=== PATIENT | male | born 1995 | race Caucasian/White ===

== ENCOUNTER 2016-09-02 23:37 | Observation (INO) | payer BC, OTHER ==
[2016-09-02] MEDS ORDERED: Albuterol 0.083% 2.5 MG/3 ML Neb Soln NEB ONE (23:58)
[2016-09-02] MEDS ORDERED: Albuterol 0.083% 2.5 MG/3 ML Neb Soln ONE (23:59)
[2016-09-02] MEDS ORDERED: methylPREDNISolone Sodium Succinate 125 MG/2 ML SDV IM ONE (23:59)
--- NOTE | 2016-09-03 00:04 | EDM.PDOC ---
ED HISTORY OF PRESENT ILLNESS - General Chief Complaint: Respiratory Problem Stated Complaint: shortness of breath Time Seen by Provider: 09/02/16 23:50 Source of Information: Reports: Patient History Limitations: Reports: No limitations - History of Present Illness INITIAL COMMENTS - FREE TEXT/NARRATIVE: The patient reports shortness of breath and wheezing that have been persistent since awakening this morning. He was seen today by TAYA Porras and states he was diagnosed with "allergies" and was given "a steroid injection", no nebulizer treatment, and he was given a prescription for Ciprofloxacin 500 mg tabs BID for 10 days. He reports the wheezing and shortness of breath has increased throughout the day and tonight. He denies cough, fever, chills, and bodyaches. He denies other symptoms or complaints. - Related Data Allergies/ADRs: Allergies Allergy/AdvReac Type Severity Reaction Status Date / Time amoxicillin Allergy Cannot Verified 09/02/16 23:38 Remember Penicillins Allergy Cannot Verified 09/02/16 23:38 Remember Sulfa (Sulfonamide Allergy Rash Verified 09/02/16 23:38 Antibiotics) Home Meds: Home Meds Loratadine [Claritin] 10 mg PO ACBRK 06/30/14 [History] Albuterol Sulfate [Albuterol Sulfate HFA] 2 puff INH Q4HR PRN 12/19/14 [History] Albuterol/Ipratropium [DuoNeb 3.0-0.5 MG/3 ML] 3 ml NEB Q4H PRN 09/02/16 [ History] Ciprofloxacin [Ciprofloxacin HCl] 500 mg PO BID 09/02/16 [History] Prednisone [IJD: predniSONE] 20 mg PO WITHBREAKFAST 09/02/16 [History] methylPREDNISolone [Medrol] 4 mg PO ASDIRECTED #1 tab.ds.pk 09/03/16 [Rx] Past Medical History - Past Health History Medical/Surgical History: Denies Medical/Surgical History Respiratory History: Reports: Asthma - Past Surgical History GI Surgical History: Reports: Appendectomy Social & Family History - Tobacco Use Smoking Status *Q: Never Smoker Second Hand Smoke Exposure: No - Alcohol Use Days Per Week of Alcohol Use: 0 - Recreational Drug Use Recreational Drug Use: No ED ROS GENERAL - Review of Systems Review Of Systems: ROS reveals no pertinent complaints other than HPI. ED EXAM, GENERAL - Physical Exam Exam: See Below Exam Limited By: No limitations General Appearance: alert, WD/WN, no apparent distress, moderate distress ( Respiratory with wheezing and tachypnea.) Eye Exam: left eye: EOMI, normal inspection, PERRL Ears: normal external exam, normal canal, hearing grossly normal, normal TMs Ear Exam: bilateral ear: auricle normal, canal normal, TM normal Nose: normal inspection, normal mucosa, no blood Throat/Mouth: Normal inspection, Normal lips, Normal teeth, Normal gums, Normal oropharynx, Normal voice, No airway compromise Head: atraumatic, normocephalic Neck: normal inspection, supple, non-tender, full range of motion. No: lymphadenopathy (L), lymphadenopathy (R), tender lateral, tender midline Respiratory/Chest: no accessory muscle use, chest non-tender, respiratory distress (Tachypnea and shortness of breath.), decreased breath sounds, wheezing (Expiratory throughout.). No: crackles, rales, rhonchi, stridor, pleural rub, retractions, splinting Cardiovascular: normal peripheral pulses, no murmur Peripheral Pulses: 2+: radial (L), radial (R) GI/Abdominal: normal bowel sounds, soft, non tender, no organomegaly, no distention Back Exam: normal inspection, full range of motion Extremities: normal inspection, normal range of motion, non-tender, no pedal edema, normal capillary refill Neurological: alert, oriented, CN II-XII intact, normal cognition, normal gait, normal reflexes, no motor/sensory deficits Psychiatric: normal affect, normal mood Skin Exam: Warm, Dry, Intact, Normal color, No rash Course - Vital Signs Last Recorded V/S: Last Vital Signs Temp 36.6 C 09/02/16 23:45 Pulse 131 H 09/02/16 23:45 Resp 24 H 09/02/16 23:45 BP 136/97 H 09/02/16 23:45 Pulse Ox 98 09/03/16 01:40 - Orders/Labs/Meds Orders: Active Orders 24 hr Category Date Time Status Peripheral IV Care [RC] . DIRECTED Care 09/03/16 00:36 Active RT Aerosol Therapy [RC] ASDIRECTED Care 09/02/16 23:58 Active RT Aerosol Therapy [RC] ASDIRECTED Care 09/02/16 23:59 Active RT Aerosol Therapy [RC] ASDIRECTED Care 09/03/16 00:37 Active RT Aerosol Therapy [RC] ASDIRECTED Care 09/03/16 01:59 Active RT Aerosol Therapy [RC] ASDIRECTED Care 09/03/16 02:00 Active EPINEPHrine [Adrenalin 1:1000] Med 09/03/16 02:25 Once 0.5 mg IM ONETIME ONE Sodium Chloride 0.9% [Saline Flush] Med 09/03/16 00:36 Active 10 ml FLUSH ASDIRECTED PRN Peripheral IV Insertion Adult [OM.PC] Routine Oth 09/03/16 00:36 Ordered Medication Orders Sodium Chloride (Saline Flush) 10 ml FLUSH ASDIRECTED PRN PRN Reason: Keep Vein Open Meds: Medications Generic Name Dose Route Start Last Admin Trade Name Freq PRN Reason Stop Dose Admin Sodium Chloride 10 ml 09/03/16 00:36 Saline Flush FLUSH ASDIRECTED PRN Keep Vein Open Discontinued Medications Generic Name Dose Route Start Last Admin Trade Name Freq PRN Reason Stop Dose Admin Albuterol 2.5 mg 09/02/16 23:58 09/03/16 00:35 Proventil Neb Soln NEB 09/02/16 23:59 2.5 mg ONETIME ONE Administration Albuterol 2.5 mg 09/03/16 00:15 09/03/16 00:01 Proventil Neb Soln NEB 09/03/16 00:16 2.5 mg ONETIME ONE Administration Albuterol Confirm 09/02/16 23:59 09/03/16 00:59 Proventil Neb Soln Administered 09/03/16 00:00 Not Given Dose 2.5 mg .ROUTE .STK-MED ONE Albuterol 2.5 mg 09/03/16 01:58 09/03/16 01:26 Proventil Neb Soln NEB 09/03/16 01:59 2.5 mg ONETIME ONE Administration Albuterol/Ipratropium Confirm 09/03/16 00:15 09/03/16 01:55 Duoneb 3.0-0.5 Mg/3 Ml Administered 09/03/16 00:16 3 ml Dose Administration 3 ml .ROUTE .STK-MED ONE Albuterol/Ipratropium 3 ml 09/03/16 00:37 09/03/16 01:01 Duoneb 3.0-0.5 Mg/3 Ml NEB 09/03/16 00:38 3 ml ONETIME ONE Administration Albuterol/Ipratropium Confirm 09/03/16 01:55 09/03/16 02:00 Duoneb 3.0-0.5 Mg/3 Ml Administered 09/03/16 01:56 Not Given Dose 3 ml .ROUTE .STK-MED ONE Albuterol/Ipratropium 3 ml 09/03/16 02:00 09/03/16 02:02 Duoneb 3.0-0.5 Mg/3 Ml NEB 09/03/16 02:01 Not Given ONETIME ONE Epinephrine HCl 0.5 mg 09/03/16 01:02 09/03/16 01:06 Adrenalin 1:1000 IM 09/03/16 01:03 0.5 mg ONETIME ONE Administration Epinephrine HCl 0.5 mg 09/03/16 01:41 09/03/16 01:43 Adrenalin 1:1000 IM 09/03/16 01:42 0.5 mg ONETIME ONE Administration Sodium Chloride 1,000 mls @ 1,000 mls/hr 09/03/16 00:35 09/03/16 00:52 Normal Saline IV 09/03/16 01:34 1,000 mls/hr .BOLUS ONE Administration Magnesium Sulfate 2 gm/ Premix 50 mls @ 50 mls/hr 09/03/16 00:37 09/03/16 00: 52 IV 09/03/16 01:36 50 mls/hr ONETIME ONE Administration Methylprednisolone Sodium Succinate 125 mg 09/02/16 23:59 09/03/16 00:13 Solu-Medrol IM 09/03/16 00:00 125 mg ONETIME ONE Administration Methylprednisolone Sodium Succinate 125 mg 09/03/16 00:41 09/03/16 00:47 Solu-Medrol IVPUSH 09/03/16 00:42 125 mg ONETIME ONE Administration Departure - Departure Time of Disposition: 00:35 Disposition: Home, Self-Care 01 Clinical Impression: Asthma exacerbation, Acute bronchospasm Prescriptions: methylPREDNISolone [Medrol] 4 mg PO ASDIRECTED #1 tab.ds.pk Instructions: Asthma, Acute Bronchospasm Forms: ED Department Discharge Additional Instructions: 1. Given albuterol nebulizers x 3 with significant improvement in breath sounds following each and near resolution of wheezing after last. 2. Solumedrol 125 mg IM in ER. 3. Prescription for Medrol dose pack, take as prescribed, 0 refills. 4. Instructed to resume albuterol nebulizers at home every 2 hours as needed for the next 2-3 days, then as prescribed. 5. Followup with PCP in 3-5 days to reassess asthma treatment regimen. 6. Return to ER with severe/refractory shortness of breath, wheezing, chest pain , fever > 101 F not responsive to acetaminophen or ibuprofen, or other emergent concerns. - My Orders Last 24 Hours: My Active Orders 09/02/16 23:58 RT Aerosol Therapy [RC] ASDIRECTED 09/02/16 23:59 RT Aerosol Therapy [RC] ASDIRECTED 09/03/16 00:36 Peripheral IV Care [RC] . DIRECTED Sodium Chloride 0.9% [Saline Flush] 10 ml FLUSH ASDIRECTED PRN Peripheral IV Insertion Adult [OM.PC] Routine 09/03/16 00:37 RT Aerosol Therapy [RC] ASDIRECTED 09/03/16 01:59 RT Aerosol Therapy [RC] ASDIRECTED 09/03/16 02:00 RT Aerosol Therapy [RC] ASDIRECTED 09/03/16 02:25 EPINEPHrine [Adrenalin 1:1000] 0.5 mg IM ONETIME ONE - Assessment/Plan Last 24 Hours: My Active Orders 09/02/16 23:58 RT Aerosol Therapy [RC] ASDIRECTED 09/02/16 23:59 RT Aerosol Therapy [RC] ASDIRECTED 09/03/16 00:36 Peripheral IV Care [RC] . DIRECTED Sodium Chloride 0.9% [Saline Flush] 10 ml FLUSH ASDIRECTED PRN Peripheral IV Insertion Adult [OM.PC] Routine 09/03/16 00:37 RT Aerosol Therapy [RC] ASDIRECTED 09/03/16 01:59 RT Aerosol Therapy [RC] ASDIRECTED 09/03/16 02:00 RT Aerosol Therapy [RC] ASDIRECTED 09/03/16 02:25 EPINEPHrine [Adrenalin 1:1000] 0.5 mg IM ONETIME ONE Assessment:: Asthma Exacerbation with Acute Bronchospasm. Plan: 1. Given albuterol nebulizer and Duoneb nebulizers in alternating fashion, 3 of each, with mild improvement in breath sounds following each. 2. Solumedrol 125 mg IM x 1 in ER shortly after arrival, then 125 mg IV x 1 in ER. 3. Magnesium Sulfate 2 grams IV over 1 hour. 4. Epinephrine 0.5 mg IM x 3 in ER. 5. NS bolus of 1 L over 1 hour. 6. Admit for observation with continuous pulse oximetry and telemetry. 7. Alternating Albuterol and Duoneb nebulizers every 1 hour overnight. 8. Solumedrol 125 mg IV at 06:00. 9. CBC, CMP at 07:00. 10. CXR 2 view at 08:00. 11. Reassess in AM. 12. Nursing to notify of desaturation, worsened wheezing or SOB, mental status changes, or other emergent concerns.
[2016-09-03] MEDS ORDERED: Albuterol 0.083% 2.5 MG/3 ML Neb Soln NEB ONE ×3 (00:15→03:24)
[2016-09-03] MEDS: Albuterol/Ipratropium 3.0-0.5 MG/3 ML Neb Soln ONE ×2 (00:18→01:55)
[2016-09-03] MEDS ORDERED: Sodium Chloride 0.9% 1,000 ML IV ONE ×2 (00:35→10:49)
[2016-09-03] MEDS ORDERED: Magnesium Sulfate/Water 2 GM in Premix Bag 1 BAG IV ONE (00:37)
[2016-09-03] MEDS ORDERED: Albuterol/Ipratropium 3.0-0.5 MG/3 ML Neb Soln NEB ONE ×2 (00:37→02:00)
[2016-09-03] MEDS ORDERED: methylPREDNISolone Sodium Succinate 125 MG/2 ML SDV IVPUSH ONE ×2 (00:41→06:00)
[2016-09-03] MEDS ORDERED: EPINEPHrine 1:1000 1 MG/ML SDV IM ONE ×3 (01:02→02:25)
[2016-09-03] MEDS ORDERED: Albuterol/Ipratropium 3.0-0.5 MG/3 ML Neb Soln ONE (01:55)
[2016-09-03] MEDS: Sodium Chloride 0.9% 10 ML Syringe FLUSH SCH ×3 (05:43→17:04)
[2016-09-03 07:41] LABS: CHLORIDE,CL 103 mmol/L (98-107); SODIUM,NA 140 mmol/L (136-145)
[2016-09-03] MEDS: Sodium Chloride 0.9% 10 ML Syringe FLUSH PRN ×4 (08:12→20:12)
[2016-09-03] MEDS ORDERED: Potassium Chloride 10 MEQ in Premix Bag 1 BAG IV ONE ×5 (10:47→10:48)
[2016-09-03] MEDS ORDERED: Calcium Gluconate 10% 1 GM/10 ML SDV IVPUSH ONE (10:48)
[2016-09-03] MEDS: Potassium Chloride 10 MEQ in Premix Bag 1 BAG IV SCH ×4 (11:02→14:22)
[2016-09-03] MEDS ORDERED: Albuterol 0.083% 2.5 MG/3 ML Neb Soln NEB PRN (12:50)
[2016-09-03] MEDS ORDERED: NS + KCl 20mEq/L 1,000 ML IV SCH (13:00)
--- NOTE | 2016-09-03 13:01 | PCM.PN ---
- General Info Date of Service: 09/03/16 Admission Dx/Problem (Free Text): Severe asthma exacerbation Subjective Update: The patient has had significant improvement with significantly improved shortness of breath and near total resolution of wheezing. He denies chest pain , cough, fever, chills, and bodyaches. He denies other symptoms or complaints. - Review of Systems General: Reports: Fatigue (Improved from admission.) HEENT: Reports: no symptoms Pulmonary: Reports: shortness of breath (Improved significantly). Denies: pleuritic chest pain, cough, sputum, hemoptysis, wheezing (Resolved) Cardiovascular: Denies: Chest Pain, Palpitations, Dyspnea on Exertion, Orthopnea , Edema Gastrointestinal: Reports: No symptoms Genitourinary: Reports: no symptoms Musculoskeletal: Reports: no symptoms Skin: Reports: no symptoms Neurological: Reports: No Symptoms Psychiatric: Reports: no symptoms - Patient Data Vitals - most recent: Last Vital Signs Temp 36.7 C 09/03/16 08:07 Pulse 121 H 09/03/16 08:07 Resp 20 09/03/16 08:07 BP 116/64 09/03/16 08:07 Pulse Ox 96 09/03/16 08:07 Weight - most recent: 94.347 kg I&O - last 24 hours: Intake & Output 09/02/16 09/03/16 09/03/16 22:59 06:59 14:59 Intake Total 240 Balance 240 Lab Results last 24 hrs: Laboratory Results - last 24 hr 09/03/16 09/03/16 Range/Units 06:25 06:25 WBC 11.9 H (4.0-10.2) K/uL RBC 5.09 (4.33-5.41) M/uL Hgb 15.1 (13.1-16.8) g/dL Hct 44.7 (39.0-49.0) % MCV 87.8 (84.0-98.0) fL MCH 29.7 (28.2-33.3) pg MCHC 33.8 (31.7-36.0) g/dL RDW 13.2 (11.2-14.1) % Plt Count 296 (150-350) K/uL Neut % (Auto) 96.1 H (45.0-80.0) % Lymph % (Auto) 2.9 L (10.0-50.0) % [place] % (Auto) 0.8 L (2.0-14.0) % Eos % (Auto) 0.1 (0.0-5.0) % Baso % (Auto) 0.1 (0.0-2.0) % Neut # (Auto) 11.43 H (1.40-7.00) K/uL Lymph # (Auto) 0.34 L (0.50-3.50) K/uL [place] # (Auto) 0.10 (0.00-1.00) K/uL Eos # (Auto) 0.01 (0.00-0.50) K/uL Baso # (Auto) 0.01 (0.00-0.20) K/uL Sodium 140 (136-145) mmol/L Potassium 3.0 L (3.5-5.1) mmol/L Chloride 103 (98-107) mmol/L Carbon Dioxide 16.9 L (21.0-32.0) mmol/L BUN 11 (7-18) mg/dL Creatinine 0.87 (0.51-1.17) mg/dL Est Cr Clr Drug Dosing 123.16 mL/min Estimated GFR (MDRD) > 60 mL/min Glucose 254 H* (74-106) mg/dL Calcium 8.0 L (8.5-10.1) mg/dL Total Bilirubin 0.9 (0.2-1.0) mg/dL AST 14 L (15-37) U/L ALT 25 (12-78) U/L Alkaline Phosphatase 67 (46-116) IU/L Total Protein 7.9 (6.4-8.2) g/dL Albumin 4.1 (3.4-5.0) g/dL Med Orders - Current: Current Medications Albuterol (Proventil Neb Soln) 2.5 mg NEB Q2H PRN PRN Reason: Wheezing Albuterol/Ipratropium (Duoneb 3.0-0.5 Mg/3 Ml) 3 ml NEB Q4HRRT [facility] Potassium Chloride 10 meq/ (Premix) 50 mls @ 50 mls/hr IV Q1H ABELARDO Stop: 09/03/16 14:59 Last Admin: 09/03/16 12:13 Dose: 50 mls/hr Potassium Chloride/Sodium Chloride (Normal Saline With 20 Meq Kcl) 1,000 mls @ 100 mls/hr IV ASDIRECTED ABELARDO Methylprednisolone Sodium Succinate (Solu-Medrol) 125 mg IVPUSH Q8H ABELARDO Sodium Chloride (Saline Flush) 10 ml FLUSH ASDIRECTED PRN PRN Reason: Keep Vein Open Last Admin: 09/03/16 11:09 Dose: 10 ml Sodium Chloride (Saline Flush) 10 ml FLUSH BID ABELARDO Last Admin: 09/03/16 08:12 Dose: 10 ml Discontinued Medications Albuterol (Proventil Neb Soln) 2.5 mg NEB ONETIME ONE Stop: 09/02/16 23:59 Last Admin: 09/03/16 00:35 Dose: 2.5 mg Albuterol (Proventil Neb Soln) 2.5 mg NEB ONETIME ONE Stop: 09/03/16 00:16 Last Admin: 09/03/16 00:01 Dose: 2.5 mg Albuterol (Proventil Neb Soln) Confirm Administered Dose 2.5 mg .ROUTE .STK-MED ONE Stop: 09/03/16 00:00 Last Admin: 09/03/16 00:59 Dose: Not Given Albuterol (Proventil Neb Soln) 2.5 mg NEB ONETIME ONE Stop: 09/03/16 01:59 Last Admin: 09/03/16 01:26 Dose: 2.5 mg Albuterol (Proventil Neb Soln) 15 mg NEB ONETIME ONE Stop: 09/03/16 03:25 Last Admin: 09/03/16 03:57 Dose: 15 mg Albuterol/Ipratropium (Duoneb 3.0-0.5 Mg/3 Ml) Confirm Administered Dose 3 ml .ROUTE .STK-MED ONE Stop: 09/03/16 00:16 Last Admin: 09/03/16 01:55 Dose: 3 ml Albuterol/Ipratropium (Duoneb 3.0-0.5 Mg/3 Ml) 3 ml NEB ONETIME ONE Stop: 09/03/16 00:38 Last Admin: 09/03/16 01:01 Dose: 3 ml Albuterol/Ipratropium (Duoneb 3.0-0.5 Mg/3 Ml) Confirm Administered Dose 3 ml .ROUTE .STK-MED ONE Stop: 09/03/16 01:56 Last Admin: 09/03/16 02:00 Dose: Not Given Albuterol/Ipratropium (Duoneb 3.0-0.5 Mg/3 Ml) 3 ml NEB ONETIME ONE Stop: 09/03/16 02:01 Last Admin: 09/03/16 02:02 Dose: Not Given Calcium Gluconate (Calcium Gluconate) 1 gm IVPUSH ONETIME ONE Stop: 09/03/16 10:49 Last Admin: 09/03/16 11:09 Dose: 1 gm Epinephrine HCl (Adrenalin 1:1000) 0.5 mg IM ONETIME ONE Stop: 09/03/16 01:03 Last Admin: 09/03/16 01:06 Dose: 0.5 mg Epinephrine HCl (Adrenalin 1:1000) 0.5 mg IM ONETIME ONE Stop: 09/03/16 01:42 Last Admin: 09/03/16 01:43 Dose: 0.5 mg Epinephrine HCl (Adrenalin 1:1000) 0.5 mg IM ONETIME ONE Stop: 09/03/16 02:26 Last Admin: 09/03/16 02:32 Dose: 0.5 mg Sodium Chloride (Normal Saline) 1,000 mls @ 1,000 mls/hr IV .BOLUS ONE Stop: 09/03/16 01:34 Last Admin: 09/03/16 00:52 Dose: 1,000 mls/hr Magnesium Sulfate 2 gm/ Premix 50 mls @ 50 mls/hr IV ONETIME ONE Stop: 09/03/16 01:36 Last Admin: 09/03/16 00:52 Dose: 50 mls/hr Sodium Chloride (Normal Saline) 1,000 mls @ 1,000 mls/hr IV .BOLUS ONE Stop: 09/03/16 11:48 Last Admin: 09/03/16 11:03 Dose: 1,000 mls/hr Methylprednisolone Sodium Succinate (Solu-Medrol) 125 mg IM ONETIME ONE Stop: 09/03/16 00:00 Last Admin: 09/03/16 00:13 Dose: 125 mg Methylprednisolone Sodium Succinate (Solu-Medrol) 125 mg IVPUSH ONETIME ONE Stop: 09/03/16 00:42 Last Admin: 09/03/16 00:47 Dose: 125 mg Methylprednisolone Sodium Succinate (Solu-Medrol) 125 mg IVPUSH ONETIME ONE Stop: 09/03/16 06:01 Last Admin: 09/03/16 05:43 Dose: 125 mg - Exam Quality Assessment: supplemental oxygen (4 L per nasal cannula. ) General: alert, oriented HEENT: Pupils equal, Pupils reactive, EOMI, Mucous membr. moist/pink Lungs: Clear to auscultation, Normal respiratory effort Cardiovascular: Regular Rate, Regular Rhythm Abdomen: bowel sounds present, soft, no tenderness, no distension Extremities: no edema, normal pulses, no tenderness/swelling, no clubbing, no cyanosis Skin: warm, dry, intact Wound/Incisions: healing well Neurological: no new focal deficit Psy/Mental Status: alert, normal affect, normal mood - Problem List & Annotations (1) Asthma exacerbation SNOMED Code(s): 062078267 Code(s): J45.901 - UNSPECIFIED ASTHMA WITH (ACUTE) EXACERBATION Status: Acute Priority: High Current Visit: Yes Annotation/Comment:: Severe asthma exacerbation and admitted from ER last night. Treated aggressively with multiple Duoneb and Albuterol nebulizers, IM/IV Solumedrol, Epinephrine IM x 2, and IV Magnesium Sulfate. Has had significant improvement and has mild shortness of breath currently. Still on 4 L NC, will wean as able to keep O2 > 92%. Will get ABG as serum bicarbonate low. (2) Dehydration, moderate SNOMED Code(s): 5294503733912 Code(s): E86.0 - DEHYDRATION Status: Acute Priority: High Current Visit : Yes Annotation/Comment:: Likely secondary to insensible losses with asthma exacerbation. Tachycardia. Will given NS bolus and IV maintenance fluids today. (3) Hypokalemia SNOMED Code(s): 84881344 Code(s): E87.6 - HYPOKALEMIA Status: Acute Priority: High Current Visit : Yes Annotation/Comment:: Replete with IV potassium. (4) Hypocalcemia SNOMED Code(s): 7982673 Code(s): E83.51 - HYPOCALCEMIA Status: Acute Priority: Medium Current Visit: Yes Annotation/Comment:: Will replete with IV calcium gluconate. - Problem List Review Problem List Initiated/Reviewed/Updated: Yes - My Orders Last 24 Hours: My Active Orders 09/03/16 03:18 Patient Status [ADT] Routine Cardiac Monitoring [RC] Q2HR 09/03/16 03:20 Code Status [Resuscitation Status] Routine 09/03/16 03:21 Overnight Pulse Oximetry [RC] Click To Edit Pulse Oximetry Continuous Monitoring [OM.PC] Routine 09/03/16 03:25 RT Aerosol Therapy [RC] .PRN 09/03/16 03:27 Vital Signs [RC] Q2H 09/03/16 06:00 Sodium Chloride 0.9% [Saline Flush] 10 ml FLUSH BID 09/03/16 08:00 Chest 2V [CR] Routine 09/03/16 11:00 Potassium Chloride [KCl 10 MEQ in Water 50 ML] 10 meq Premix Bag 1 bag IV Q1H 09/03/16 12:49 RT Aerosol Therapy [RC] ASDIRECTED 09/03/16 12:50 Albuterol [Proventil Neb Soln] 2.5 mg NEB Q2H PRN 09/03/16 12:51 RT Aerosol Therapy [RC] ASDIRECTED 09/03/16 12:53 Notify Provider Vital Signs [RC] ASDIRECTED 09/03/16 12:54 Communication Order [RC] DAILY 09/03/16 12:55 ABG [BLOOD GAS ARTERIAL] [BG] Routine 09/03/16 13:00 Albuterol/Ipratropium [DuoNeb 3.0-0.5 MG/3 ML] 3 ml NEB Q4HRRT Sodium Chloride 0.9% with KCl 20 mEq @ 100 mL/Hr (1000 mL) NS + KCl 20mEq/L [ Normal Saline with 20 mEq KCl] 1,000 ml IV ASDIRECTED methylPREDNISolone Sod Succ [Solu-MEDROL] 125 mg IVPUSH Q8H 09/03/16 Breakfast Regular Diet [DIET] 09/04/16 07:00 CBC WITH AUTO DIFF [HEME] Stat CMP [COMPREHENSIVE METABOLIC PN,CMP] [CHEM] Routine - Plan Plan:: 1. Will keep today and treat as outlined above. Anticipate likely discharge tomorrow. 2. CATHI hose and Lovenox for DVT prophylaxis. 3. Incentive spirometer for pneumonia prophylaxis.
[2016-09-03] MEDS: Albuterol/Ipratropium 3.0-0.5 MG/3 ML Neb Soln NEB SCH ×3 (13:16→20:12)
[2016-09-03] MEDS: methylPREDNISolone Sodium Succinate 125 MG/2 ML SDV IVPUSH SCH ×2 (13:17→20:12)
[2016-09-03] MEDS: Enoxaparin 40 MG/0.4 ML Syringe SUBCUT SCH (13:17)
[2016-09-03 13:27] LABS: O2 DELIVERY DEVICE NASAL CANNULA
[2016-09-03 13:30] LABS: PCO2 ARTERIAL 34 mmHG (35-45)
[2016-09-03 13:31] LABS: BASE EXCESS ARTERIAL -6 mmol/L (-2-3); BICARBONATE,ARTERIAL 19.5 mmol/L (22-26); O2 SATURATION ARTERIAL 93 % (95-98); PO2 ARTERIAL 68 mmHG (80-105)
[2016-09-04] MEDS: Albuterol/Ipratropium 3.0-0.5 MG/3 ML Neb Soln NEB SCH ×3 (00:15→08:25)
[2016-09-04] MEDS: Sodium Chloride 0.9% 1,000 ML IV SCH ×2 (02:00→08:22)
[2016-09-04] MEDS: methylPREDNISolone Sodium Succinate 125 MG/2 ML SDV IVPUSH SCH (04:39)
[2016-09-04] MEDS: Sodium Chloride 0.9% 10 ML Syringe FLUSH SCH (08:23)
[2016-09-04] MEDS: Enoxaparin 40 MG/0.4 ML Syringe SUBCUT SCH ×2 (08:25→08:32)
[2016-09-04 08:35] LABS: BASE EXCESS ARTERIAL -3 mmol/L (-2-3); O2 DELIVERY DEVICE ROOM AIR; O2 SATURATION ARTERIAL 89 % (95-98); PCO2 ARTERIAL 35 mmHG (35-45); PO2 ARTERIAL 57 mmHG (80-105)
[2016-09-04 08:39] LABS: CHLORIDE,CL 106 mmol/L (98-107); SODIUM,NA 140 mmol/L (136-145)
[2016-09-04 08:48] VITALS: BP 112/59
--- NOTE | 2016-09-04 12:07 | PCM.DCSUM1 ---
Discharge Summary - Hospital Course Free Text/Narrative:: The patient was admitted in early AM on 09/03/2016 with severe exacerbation requiring aggressive treatment in ER including multiple nebs, IV Solumedrol, and Epinephrine. Wheezing and SOB resolved. ABG mildly low PaO2, but pulse oximetry good on room air and good air exchange and no wheezing clinically. Ready for discharge today. Will discharge with Medrol dose pack to begin today and followup with PCP on Tuesday09/06/2016. - Discharge Data Discharge Date: 09/04/16 Discharge Disposition: Home, Self-Care 01 Condition: Good - Discharge Diagnosis/Problem(s) (1) Asthma exacerbation SNOMED Code(s): 989370259 ICD Code: J45.901 - UNSPECIFIED ASTHMA WITH (ACUTE) EXACERBATION Status: Acute Priority: High Current Visit: Yes Problem Details: Severe asthma exacerbation requiring aggressive treatment in ER including multiple nebs, IV Solumedrol, and Epinephrine. Wheezing and SOB resolved. ABG mildly low PaO2, but pulse oximetry good on room air and good air exchange and no wheezing clinically. - Patient Instructions Diet: Usual Diet as Tolerated Activity: As Tolerated Driving: May Drive Today Showering/Bathing: May Shower - Discharge Plan Prescriptions/Med Rec: methylPREDNISolone [Medrol] 4 mg PO ASDIRECTED #1 tab.[email or web address] Home Medications: Home Meds Loratadine [Claritin] 10 mg PO ACBRK 06/30/14 [History] Albuterol Sulfate [Albuterol Sulfate HFA] 2 puff INH Q4HR PRN 12/19/14 [History] Albuterol/Ipratropium [DuoNeb 3.0-0.5 MG/3 ML] 3 ml NEB Q4H PRN 09/02/16 [ History] Ciprofloxacin [Ciprofloxacin HCl] 500 mg PO BID 09/02/16 [History] Prednisone [IJD: predniSONE] 20 mg PO WITHBREAKFAST 09/02/16 [History] methylPREDNISolone [Medrol] 4 mg PO ASDIRECTED #1 tab.ds.pk 09/03/16 [Rx] Patient Handouts: Asthma, Acute Bronchospasm Forms: ED Department Discharge Referrals: PCP,None [Primary Care Provider] - - Discharge Summary/Plan Comment DC Time >30 min.: No - General Info Date of Service: 09/04/16 Admission Dx/Problem (Free Text: Severe asthma exacerbation - Review of Systems General: Reports: No Symptoms HEENT: Reports: no symptoms Pulmonary: Reports: no symptoms Cardiovascular: Reports: No Symptoms Gastrointestinal: Reports: No symptoms Genitourinary: Reports: no symptoms Musculoskeletal: Reports: no symptoms Skin: Reports: no symptoms Neurological: Reports: No Symptoms Psychiatric: Reports: no symptoms - Patient Data Vitals - Most Recent: Last Vital Signs Temp 36.8 C 09/04/16 08:00 Pulse 86 09/04/16 08:00 Resp 17 09/04/16 08:00 BP 112/59 L 09/04/16 08:00 Pulse Ox 93 L 09/04/16 08:00 Weight - Most Recent: 94.347 kg I&O - Last 24 hours: Intake & Output 09/03/16 09/04/16 09/04/16 22:59 06:59 14:59 Intake Total 120 1600 940 Balance 120 1600 940 Lab Results - Last 24 hrs: Laboratory Results - last 24 hr 09/03/16 09/04/16 09/04/16 Range/Units 13:20 07:00 07:00 WBC 18.1 H (4.0-10.2) K/uL RBC 5.06 (4.33-5.41) M/uL Hgb 15.1 (13.1-16.8) g/dL Hct 44.7 (39.0-49.0) % MCV 88.3 (84.0-98.0) fL MCH 29.8 (28.2-33.3) pg MCHC 33.8 (31.7-36.0) g/dL RDW 13.1 (11.2-14.1) % Plt Count 287 (150-350) K/uL Neut % (Auto) 92.4 H (45.0-80.0) % Lymph % (Auto) 3.5 L (10.0-50.0) % B[place] % (Auto) 3.9 (2.0-14.0) % Eos % (Auto) 0.1 (0.0-5.0) % Baso % (Auto) 0.1 (0.0-2.0) % Neut # (Auto) 16.76 H (1.40-7.00) K/uL Lymph # (Auto) 0.64 (0.50-3.50) K/uL Barrow # (Auto) 0.71 (0.00-1.00) K/uL Eos # (Auto) 0.01 (0.00-0.50) K/uL Baso # (Auto) 0.01 (0.00-0.20) K/uL ABG pH 7.37 (7.35-7.45) ABG pCO2 34 L (35-45) mmHG ABG pO2 68 L* (80-105) mmHG ABG HCO3 19.5 L (22-26) mmol/L ABG Total CO2 21 L (23-27) mmol/L ABG O2 Saturation 93 L (95-98) % ABG Base Excess -6 L (-2-3) mmol/L O2 Delivery Device Nasal cannula Sodium 140 (136-145) mmol/L Potassium 4.0 (3.5-5.1) mmol/L Chloride 106 (98-107) mmol/L Carbon Dioxide 25.1 (21.0-32.0) mmol/L BUN 13 (7-18) mg/dL Creatinine 0.74 (0.51-1.17) mg/dL Est Cr Clr Drug Dosing 144.79 mL/min Estimated GFR (MDRD) > 60 mL/min Glucose 150 H (74-106) mg/dL Calcium 8.1 L (8.5-10.1) mg/dL Total Bilirubin 0.8 (0.2-1.0) mg/dL AST 13 L (15-37) U/L ALT 22 (12-78) U/L Alkaline Phosphatase 59 (46-116) IU/L Total Protein 7.2 (6.4-8.2) g/dL Albumin 3.6 (3.4-5.0) g/dL 09/04/16 Range/Units 08:30 WBC (4.0-10.2) K/uL RBC (4.33-5.41) M/uL Hgb (13.1-16.8) g/dL Hct (39.0-49.0) % MCV (84.0-98.0) fL MCH (28.2-33.3) pg MCHC (31.7-36.0) g/dL RDW (11.2-14.1) % Plt Count (150-350) K/uL Neut % (Auto) (45.0-80.0) % Lymph % (Auto) (10.0-50.0) % Barrow % (Auto) (2.0-14.0) % Eos % (Auto) (0.0-5.0) % Baso % (Auto) (0.0-2.0) % Neut # (Auto) (1.40-7.00) K/uL Lymph # (Auto) (0.50-3.50) K/uL Barrow # (Auto) (0.00-1.00) K/uL Eos # (Auto) (0.00-0.50) K/uL Baso # (Auto) (0.00-0.20) K/uL ABG pH 7.40 (7.35-7.45) ABG pCO2 35 (35-45) mmHG ABG pO2 57 L* (80-105) mmHG ABG HCO3 21.0 L (22-26) mmol/L ABG Total CO2 22 L (23-27) mmol/L ABG O2 Saturation 89 L (95-98) % ABG Base Excess -3 L (-2-3) mmol/L O2 Delivery Device Room air Sodium (136-145) mmol/L Potassium (3.5-5.1) mmol/L Chloride (98-107) mmol/L Carbon Dioxide (21.0-32.0) mmol/L BUN (7-18) mg/dL Creatinine (0.51-1.17) mg/dL Est Cr Clr Drug Dosing mL/min Estimated GFR (MDRD) mL/min Glucose (74-106) mg/dL Calcium (8.5-10.1) mg/dL Total Bilirubin (0.2-1.0) mg/dL AST (15-37) U/L ALT (12-78) U/L Alkaline Phosphatase (46-116) IU/L Total Protein (6.4-8.2) g/dL Albumin (3.4-5.0) g/dL Med Orders - Current: Current Medications Albuterol (Proventil Neb Soln) 2.5 mg NEB Q2H PRN PRN Reason: Wheezing Albuterol/Ipratropium (Duoneb 3.0-0.5 Mg/3 Ml) 3 ml NEB Q4HRRT [facility] Last Admin: 09/04/16 08:25 Dose: 3 ml Enoxaparin Sodium (Lovenox) 40 mg SUBCUT DAILY [facility] Last Admin: 09/04/16 08:32 Dose: Not Given Potassium Chloride/Sodium Chloride (Normal Saline With 20 Meq Kcl) 1,000 mls @ 100 mls/hr IV ASDIRECTED ABELARDO Last Admin: 09/03/16 15:21 Dose: 100 mls/hr Sodium Chloride (Normal Saline) 1,000 mls @ 150 mls/hr IV ASDIRECTED ABELARDO Last Admin: 09/04/16 08:22 Dose: 150 mls/hr Methylprednisolone Sodium Succinate (Solu-Medrol) 125 mg IVPUSH Q8H [facility] Last Admin: 09/04/16 04:39 Dose: 125 mg Sodium Chloride (Saline Flush) 10 ml FLUSH ASDIRECTED PRN PRN Reason: Keep Vein Open Last Admin: 09/03/16 20:12 Dose: 10 ml Sodium Chloride (Saline Flush) 10 ml FLUSH BID [facility] Last Admin: 09/04/16 08:23 Dose: 10 ml Discontinued Medications Albuterol (Proventil Neb Soln) 2.5 mg NEB ONETIME ONE Stop: 09/02/16 23:59 Last Admin: 09/03/16 00:35 Dose: 2.5 mg Albuterol (Proventil Neb Soln) 2.5 mg NEB ONETIME ONE Stop: 09/03/16 00:16 Last Admin: 09/03/16 00:01 Dose: 2.5 mg Albuterol (Proventil Neb Soln) Confirm Administered Dose 2.5 mg .ROUTE .STK-MED ONE Stop: 09/03/16 00:00 Last Admin: 09/03/16 00:59 Dose: Not Given Albuterol (Proventil Neb Soln) 2.5 mg NEB ONETIME ONE Stop: 09/03/16 01:59 Last Admin: 09/03/16 01:26 Dose: 2.5 mg Albuterol (Proventil Neb Soln) 15 mg NEB ONETIME ONE Stop: 09/03/16 03:25 Last Admin: 09/03/16 03:57 Dose: 15 mg Albuterol/Ipratropium (Duoneb 3.0-0.5 Mg/3 Ml) Confirm Administered Dose 3 ml .ROUTE .STK-MED ONE Stop: 09/03/16 00:16 Last Admin: 09/03/16 01:55 Dose: 3 ml Albuterol/Ipratropium (Duoneb 3.0-0.5 Mg/3 Ml) 3 ml NEB ONETIME ONE Stop: 09/03/16 00:38 Last Admin: 09/03/16 01:01 Dose: 3 ml Albuterol/Ipratropium (Duoneb 3.0-0.5 Mg/3 Ml) Confirm Administered Dose 3 ml .ROUTE .STK-MED ONE Stop: 09/03/16 01:56 Last Admin: 09/03/16 02:00 Dose: Not Given Albuterol/Ipratropium (Duoneb 3.0-0.5 Mg/3 Ml) 3 ml NEB ONETIME ONE Stop: 09/03/16 02:01 Last Admin: 09/03/16 02:02 Dose: Not Given Calcium Gluconate (Calcium Gluconate) 1 gm IVPUSH ONETIME ONE Stop: 09/03/16 10:49 Last Admin: 09/03/16 11:09 Dose: 1 gm Epinephrine HCl (Adrenalin 1:1000) 0.5 mg IM ONETIME ONE Stop: 09/03/16 01:03 Last Admin: 09/03/16 01:06 Dose: 0.5 mg Epinephrine HCl (Adrenalin 1:1000) 0.5 mg IM ONETIME ONE Stop: 09/03/16 01:42 Last Admin: 09/03/16 01:43 Dose: 0.5 mg Epinephrine HCl (Adrenalin 1:1000) 0.5 mg IM ONETIME ONE Stop: 09/03/16 02:26 Last Admin: 09/03/16 02:32 Dose: 0.5 mg Sodium Chloride (Normal Saline) 1,000 mls @ 1,000 mls/hr IV .BOLUS ONE Stop: 09/03/16 01:34 Last Admin: 09/03/16 00:52 Dose: 1,000 mls/hr Magnesium Sulfate 2 gm/ Premix 50 mls @ 50 mls/hr IV ONETIME ONE Stop: 09/03/16 01:36 Last Admin: 09/03/16 00:52 Dose: 50 mls/hr Potassium Chloride 10 meq/ (Premix) 50 mls @ 50 mls/hr IV Q1H ABELARDO Stop: 09/03/16 14:59 Last Admin: 09/03/16 14:22 Dose: 50 mls/hr Sodium Chloride (Normal Saline) 1,000 mls @ 1,000 mls/hr IV .BOLUS ONE Stop: 09/03/16 11:48 Last Admin: 09/03/16 11:03 Dose: 1,000 mls/hr Methylprednisolone Sodium Succinate (Solu-Medrol) 125 mg IM ONETIME ONE Stop: 09/03/16 00:00 Last Admin: 09/03/16 00:13 Dose: 125 mg Methylprednisolone Sodium Succinate (Solu-Medrol) 125 mg IVPUSH ONETIME ONE Stop: 09/03/16 00:42 Last Admin: 09/03/16 00:47 Dose: 125 mg Methylprednisolone Sodium Succinate (Solu-Medrol) 125 mg IVPUSH ONETIME ONE Stop: 09/03/16 06:01 Last Admin: 09/03/16 05:43 Dose: 125 mg - Exam General: Reports: alert, oriented HEENT: Reports: Pupils equal, Pupils reactive, EOMI, Mucous membr. moist/pink Lungs: Reports: Clear to auscultation, Normal respiratory effort. Denies: Decreased breath sounds, Crackles, Rales, Rhonchi, Rub, Stridor, Wheezing Cardiovascular: Reports: Regular Rate, Regular Rhythm. Denies: Murmurs, Gallops , Rubs Abdomen: Reports: bowel sounds present, soft, no tenderness, no distension Extremities: Reports: no edema Skin: Reports: warm, dry, intact Wound/Incisions: Reports: healing well Neurological: Reports: no new focal deficit Psy/Mental Status: Reports: alert, normal affect, normal mood *Q Meaningful Use (DIS) - VTE *Q VTE Criteria *Q: - Stroke *Q Stroke Criteria *Q: - AMI *Q AMI Criteria *Q:
== END 2016-09-04 12:30 | disposition home or self-care (01) ==
LOC: LL.ED 23:37 → LL.MS 09-03 03:02
PROVIDERS: ADMIT Surgery; ATTEND Surgery
DX: J45.901 Unspecified asthma with (acute) exacerbation (principal); Z79.899 Other long term (current) drug therapy; Z88.0 Allergy status to penicillin; Z88.1 Allergy status to other antibiotic agents; Z88.2 Allergy status to sulfonamides; Z90.49 Acquired absence of other specified parts of digestive tract
CPT/HCPCS: 36415; 71020; 80053; 82803; 85025; 94640; 94664; 96360; 96365; 96372; 96375; 99285; J0171; J0610; J1650; J2930; J3480; J7030; J7050; J7620; 96361; 96366; 96376; G0378; J3475

== ENCOUNTER 2021-08-13 12:56 | Day surgery (SDC) | payer BC ==
[~2021-08-13 12:56] MED LIST: Ketamine 500 mg/10 ML MDV ONE; Lactated Ringers 1,000 ML IV SCH; Midazolam 1 MG/ML 2 ML SDV ONE; Propofol 200 MG/20 ML SDV ONE; Sodium Chloride 0.9% 10 ML Syringe FLUSH PRN
[2021-08-13] MEDS ORDERED: Midazolam 1 MG/ML 2 ML SDV ONE ×2 (14:20)
[2021-08-13] MEDS ORDERED: Glycopyrrolate 0.2 MG/ML SDV ONE ×2 (14:20)
[2021-08-13] MEDS ORDERED: Lidocaine 2% 5 ML SDV ONE ×2 (14:20)
[2021-08-13] MEDS ORDERED: Propofol 200 MG/20 ML SDV ONE ×2 (14:20)
[2021-08-13] MEDS ORDERED: Ketamine 500 mg/10 ML MDV ONE ×2 (14:20)
[2021-08-13 15:20] VITALS: BP 130/87; PULSE 78
== END 2021-08-13 15:15 | disposition home or self-care (01) ==
LOC: LL.SDS 12:56
PROVIDERS: ATTEND Surgery
DX: K20.90 Esophagitis, unspecified without bleeding (principal); R13.10 Dysphagia, unspecified; K44.9 Diaphragmatic hernia without obstruction or gangrene; J45.21 Mild intermittent asthma with (acute) exacerbation; Z79.899 Other long term (current) drug therapy; Z88.0 Allergy status to penicillin; Z88.2 Allergy status to sulfonamides
CPT/HCPCS: 43239; J2250; J2704; J3490; J7120; 00731

== ENCOUNTER 2025-03-28 11:37 | Day surgery (SDC) | payer BC ==
[~2025-03-28 11:37] MED LIST changes: -Ketamine 500 mg/10 ML MDV ONE; -Lactated Ringers 1,000 ML IV SCH
[2025-03-28] MEDS: Lactated Ringers 1,000 ML IV SCH (12:39)
[2025-03-28 14:55] VITALS: BP 133/73; PULSE 71
== END 2025-03-28 14:35 | disposition home or self-care (01) ==
LOC: LL.SDS 11:37
PROVIDERS: ATTEND Surgery
DX: D12.5 Benign neoplasm of sigmoid colon (principal); I10 Essential (primary) hypertension; Z88.0 Allergy status to penicillin; Z88.2 Allergy status to sulfonamides
CPT/HCPCS: 45385; J2250; J2704; J7120